=== PATIENT | female | born 1990 | race Caucasian/White ===

== ENCOUNTER 2016-03-16 14:24 | Emergency (ER) | payer MEDICAID ==
[2015-04-21 02:56] VITALS: BMI 80.7
[~2016-03-16 14:24] MED LIST: ACETAMINOPHEN500 M1 PO; AMOXICILLIN875 MG PO; AUGMENTIN 875-11 TAB PO; AYGESTIN5 MG PO; BAYER CHEWABLE81 MG PO; BENADRYL25 M1 PO; CELEXA40 MG PO; CHLORPROMAZINE200 MG PO; CIPRO500 MG PO; DEMEROL50 MG PO; FLEXERIL10 MG PO; FLUTICASONE PRO16 GM NASAL; HYDROCODONE-APA1 TAB PO; IBUPROFEN200 MG PO; IPRAT-ALBUT 0.5-3 ML NEB; IPRAT-ALBUT 0.5-3 ML UPD; LATUDA40 MG PO; LEVAQUIN500 MG PO; LEVAQUIN750 MG PO; LEVSIN/ANASP0.125 MG PO; LOPRESSOR25 MG PO; LOPRESSOR50 MG PO; LYRICA75 MG PO; MEDROL DOSE PACK4 MG PO; MORPHINE SULFAT30 M4 PO; MUCINEX600 MG PO; NEURONTIN 300300 MG; NEURONTIN 300300 MG PO; NICODERM C1 PATCH .2 TRANSDERM; NORCO 7.5-3251 EACH PO; PERFOROMIS20 MCG/21 UPD; PHENERGAN DM SYR5 ML PO; PLAQUENIL200 MG PO; PREDNISONE20 MG PO; PREDNISONE5 MG PO; PROTONIX40 MG PO; ROBAXIN500 MG PO; SINGULAIR10 MG PO; STOOL SOFTENER240 MG PO; SYNTHROID100 MCG PO; THORAZINE50 MG PO; ULTRAM50 MG PO; VENTOLIN HFA18 GM INH; ZANTAC150 MG PO; ZOFRAN4 MG PO
[2016-03-16 15:24] LABS: BASOPHILS 0 % (0.0-2.0); EOSINOPHILS 0.3 % (0-7); HEMATOCRIT 41.2 % (36.0-48.0); HEMOGLOBIN 13.1 g/dL (12-16); MCH 29.6 pg (26.0-34.0); MCHC 31.8 g/dL (31.0-37.0); MCV 93.2 fL (80.0-100.0); MEAN PLATELET VOLUME 11.8 fL (7.4-10.4); MONOCYTES 6.3 % (2-11); NEUTROPHILS 59.4 % (40-80); PLATELET COUNT 122 10x3/uL (130-400); RBC 4.42 10x6/uL (4.00-5.40); RDW 13.1 % (11.5-14.5); WBC 3.7 10x3/uL (4.8-10.8)
[2016-03-16 15:26] LABS: ALBUMIN 3.1 g/dL (3.4-5.0); ALKALINE PHOSPHATASE 96 U/L (46-116); ALT (SGPT) 103 U/L (10-68); CALC OSMOLALITY 284 mosm/kg (275-300); CALCIUM 8.7 mg/dL (8.5-10.1); CARBON DIOXIDE 32.1 mmol/L (21.0-32.0); CHLORIDE - SERUM 102 mmol/L (98-107); CREATININE - SERUM 0.9 mg/dL (0.6-1.3); PROTEIN - SERUM 6.9 g/dL (6.4-8.2); SODIUM 140 mmol/L (136-145); UREA NITROGEN 10 mg/dL (7-18); eGFR NON AFRICAN AMERICAN 81 mL/min (90-120)
[2016-03-16 15:27] LABS: GLUCOSE 219 mg/dL (74-106)
[2016-03-16 16:04] LABS: APPEARANCE CLEAR (CLEAR); BILIRUBIN NEGATIVE (NEGATIVE); COLOR YELLOW (YELLOW); GLUCOSE NEGATIVE (NEGATIVE); KETONE NEGATIVE (NEGATIVE); LEUKOCYTE ESTERASE TRACE (NEGATIVE); NITRITE POSITIVE (NEGATIVE); PROTEIN NEGATIVE (NEGATIVE); UROBILINOGEN NORMAL (NORMAL)
[2016-03-16 16:05] LABS: BACTERIA MANY /hpf (NONE SEEN); EPITHELIAL CELLS 0-5 /hpf (0-5); RED CELLS - URINE 0-5 /hpf (0-5)
== END 2016-03-16 17:15 | disposition home or self-care (01) ==
LOC: D.ER 14:24
PROVIDERS: Emergency Medicine
DX: R06.00 Dyspnea, unspecified (principal); N39.0 Urinary tract infection, site not specified; F31.9 Bipolar disorder, unspecified; J45.909 Unspecified asthma, uncomplicated; M94.0 Chondrocostal junction syndrome [Tietze]; M35.00 Sjogren syndrome, unspecified; F17.200 Nicotine dependence, unspecified, uncomplicated

== ENCOUNTER 2016-03-19 16:08 | Emergency (ER) | payer MEDICAID ==
[2015-04-21 02:56] VITALS: BMI 80.7
== END 2016-03-19 16:30 | disposition left against medical advice (07) ==
LOC: D.ER 16:08
DX: Z02.9 Encounter for administrative examinations, unspecified (principal)

== ENCOUNTER → 2016-03-20 13:33 | Outpatient (CLI) | payer MEDICAID ==
[2015-04-21 02:56] VITALS: BMI 80.7
== END | disposition home or self-care (01) ==
LOC: D.US 13:33
DX: L03.116 Cellulitis of left lower limb (principal)

== ENCOUNTER 2016-03-20 14:38 | Emergency (ER) | payer MEDICAID ==
[2015-04-21 02:56] VITALS: BMI 80.7
== END 2016-03-20 18:58 | disposition home or self-care (01) ==
LOC: D.ER 14:38
DX: L03.115 Cellulitis of right lower limb (principal); J45.909 Unspecified asthma, uncomplicated; F31.9 Bipolar disorder, unspecified; M35.00 Sjogren syndrome, unspecified

== ENCOUNTER 2016-03-26 08:27 | Emergency (ER) | payer MEDICAID ==
[2015-04-21 02:56] VITALS: BMI 80.7
== END 2016-03-26 11:55 | disposition home or self-care (01) ==
LOC: D.ER 08:27
DX: S69.91XA Unspecified injury of right wrist, hand and finger(s), initial encounter (principal); W01.0XXA Fall on same level from slipping, tripping and stumbling without subsequent striking against object, initial encounter; Y93.89 Activity, other specified; Y92.89 Other specified places as the place of occurrence of the external cause; F31.9 Bipolar disorder, unspecified; M94.0 Chondrocostal junction syndrome [Tietze]; M35.00 Sjogren syndrome, unspecified

== ENCOUNTER 2016-04-04 15:05 | Emergency (ER) | payer MEDICAID ==
[2015-04-21 02:56] VITALS: BMI 80.7
[2016-04-04 17:25] LABS: BASOPHILS 0 % (0.0-2.0); EOSINOPHILS 0 % (0-7); HEMATOCRIT 41.5 % (36.0-48.0); HEMOGLOBIN 13.5 g/dL (12-16); IMMATURE GRANULOCYTES 0.2 % (0-5); LYMPHOCYTES 29.1 % (15-50); MCH 29.8 pg (26.0-34.0); MCHC 32.5 g/dL (31.0-37.0); MCV 91.6 fL (80.0-100.0); MEAN PLATELET VOLUME 12.1 fL (7.4-10.4); MONOCYTES 7.6 % (2-11); NEUTROPHILS 63.1 % (40-80); PLATELET COUNT 128 10x3/uL (130-400); RBC 4.53 10x6/uL (4.00-5.40); RDW 13.5 % (11.5-14.5); WBC 4.6 10x3/uL (4.8-10.8)
[2016-04-04 18:06] LABS: ALBUMIN 2.7 g/dL (3.4-5.0); ALKALINE PHOSPHATASE 44 U/L (46-116); ALT (SGPT) 7 U/L (10-68); BILIRUBIN - TOTAL 0.48 mg/dL (0.2-1.3); CALC OSMOLALITY 278 mosm/kg (275-300); CALCIUM 7.5 mg/dL (8.5-10.1); CARBON DIOXIDE 34.3 mmol/L (21.0-32.0); CHLORIDE - SERUM 102 mmol/L (98-107); POTASSIUM - SERUM 4.2 mmol/L (3.5-5.1); PROTEIN - SERUM 2.3 g/dL (6.4-8.2); SODIUM 141 mmol/L (136-145); TROPONIN-I 0.047 ng/mL (0.000-0.060); UREA NITROGEN 9 mg/dL (7-18)
[2016-04-04 18:07] LABS: GLUCOSE 85 mg/dL (74-106)
[2016-04-04 18:25] LABS: CREATININE - SERUM < 0.6 mg/dL (0.6-1.3); eGFR NON AFRICAN AMERICAN > 90 mL/min (90-120)
== END 2016-04-04 22:34 | disposition home or self-care (01) ==
LOC: D.ER 15:05
PROVIDERS: Emergency Medicine
DX: J20.9 Acute bronchitis, unspecified (principal); F31.9 Bipolar disorder, unspecified; M94.0 Chondrocostal junction syndrome [Tietze]; M35.00 Sjogren syndrome, unspecified

== ENCOUNTER → 2016-04-17 11:20 | Outpatient (CLI) | payer MEDICAID ==
[2015-04-21 02:56] VITALS: BMI 80.7
== END | disposition home or self-care (01) ==
LOC: D.RT 11:20
DX: R06.02 Shortness of breath (principal); R06.2 Wheezing

== ENCOUNTER 2016-04-18 12:51 | Emergency (ER) | payer MEDICAID ==
[2015-04-21 02:56] VITALS: BMI 80.7
[2016-04-18 14:08] LABS: BASOPHILS 0 % (0.0-2.0); EOSINOPHILS 0 % (0-7); HEMATOCRIT 41.6 % (36.0-48.0); HEMOGLOBIN 13.4 g/dL (12-16); IMMATURE GRANULOCYTES 0.2 % (0-5); LYMPHOCYTES 24.7 % (15-50); MCH 29.5 pg (26.0-34.0); MCHC 32.2 g/dL (31.0-37.0); MCV 91.6 fL (80.0-100.0); MEAN PLATELET VOLUME 11.2 fL (7.4-10.4); MONOCYTES 9.2 % (2-11); NEUTROPHILS 65.9 % (40-80); PLATELET COUNT 118 10x3/uL (130-400); RBC 4.54 10x6/uL (4.00-5.40); RDW 13.1 % (11.5-14.5); WBC 4.3 10x3/uL (4.8-10.8)
[2016-04-18 14:30] LABS: ALBUMIN 3.4 g/dL (3.4-5.0); ANION GAP 8.5 mmol/L (8-16); BILIRUBIN - TOTAL 0.36 mg/dL (0.2-1.3); CALCIUM 9.1 mg/dL (8.5-10.1); CARBON DIOXIDE 33.4 mmol/L (21.0-32.0); POTASSIUM - SERUM 3.9 mmol/L (3.5-5.1); PROTEIN - SERUM 7.6 g/dL (6.4-8.2)
== END 2016-04-18 16:00 | disposition home or self-care (01) ==
LOC: D.ER 12:51
PROVIDERS: Emergency Medicine
DX: R06.00 Dyspnea, unspecified (principal); J20.9 Acute bronchitis, unspecified; F31.9 Bipolar disorder, unspecified; M94.0 Chondrocostal junction syndrome [Tietze]; M35.00 Sjogren syndrome, unspecified

== ENCOUNTER 2016-04-22 09:46 | Emergency (ER) | payer MEDICAID ==
[2015-04-21 02:56] VITALS: BMI 80.7
[2016-04-22 11:03] LABS: APPEARANCE HAZY (CLEAR); BILIRUBIN NEGATIVE (NEGATIVE); COLOR YELLOW (YELLOW); GLUCOSE NEGATIVE (NEGATIVE); KETONE NEGATIVE (NEGATIVE); LEUKOCYTE ESTERASE NEGATIVE (NEGATIVE); NITRITE NEGATIVE (NEGATIVE); PROTEIN TRACE mg/dL (NEGATIVE); SPECIFIC GRAVITY 1.015 (1.005-1.020); UROBILINOGEN NORMAL (NORMAL)
[2016-04-22 11:04] LABS: BACTERIA FEW /hpf (NONE SEEN); EPITHELIAL CELLS 0-5 /hpf (0-5); RED CELLS - URINE 0-5 /hpf (0-5); WHITE CELLS - URINE 0-5 /hpf (0-5)
[2016-04-22 11:07] LABS: BASOPHILS 0 % (0.0-2.0); EOSINOPHILS 0 % (0-7); HEMATOCRIT 42.7 % (36.0-48.0); HEMOGLOBIN 14.1 g/dL (12-16); IMMATURE GRANULOCYTES 0.2 % (0-5); LYMPHOCYTES 31.3 % (15-50); MCV 90.9 fL (80.0-100.0); MEAN PLATELET VOLUME 11.6 fL (7.4-10.4); MONOCYTES 6.6 % (2-11); NEUTROPHILS 61.9 % (40-80); PLATELET COUNT 117 10x3/uL (130-400); RDW 13.2 % (11.5-14.5); WBC 6.6 10x3/uL (4.8-10.8)
[2016-04-22 11:16] LABS: UDS - AMPHET NEGATIVE QUAL (NEGATIVE); UDS - BARB NEGATIVE QUAL (NEGATIVE); UDS - BENZO NEGATIVE QUAL (NEGATIVE); UDS - COCAINE NEGATIVE QUAL (NEGATIVE); UDS - METH NEGATIVE QUAL (NEGATIVE); UDS - OPIATE POSITIVE QUAL (NEGATIVE); UDS - PCP NEGATIVE QUAL (NEGATIVE); UDS - THC NEGATIVE QUAL (NEGATIVE)
[2016-04-22 11:23] LABS: ALBUMIN 3.5 g/dL (3.4-5.0); ALKALINE PHOSPHATASE 81 U/L (46-116); ALT (SGPT) 86 U/L (10-68); BILIRUBIN - TOTAL 0.39 mg/dL (0.2-1.3); CALC OSMOLALITY 282 mosm/kg (275-300); CALCIUM 9.2 mg/dL (8.5-10.1); CARBON DIOXIDE 34.9 mmol/L (21.0-32.0); CHLORIDE - SERUM 101 mmol/L (98-107); CREATININE - SERUM 0.9 mg/dL (0.6-1.3); GLUCOSE 111 mg/dL (74-106); POTASSIUM - SERUM 3.9 mmol/L (3.5-5.1); PROTEIN - SERUM 7.8 g/dL (6.4-8.2); SODIUM 142 mmol/L (136-145); UREA NITROGEN 11 mg/dL (7-18); eGFR NON AFRICAN AMERICAN 81 mL/min (90-120)
[2016-04-22 11:31] LABS: AMYLASE - SERUM 16 U/L (25-115); C-REACTIVE PROTEIN 0.5 mg/dL (0.0-0.9); CREATINE KINASE 19 UL (21-215); LIPASE 105 U/L (73-393); PRO BNP 70 pg/mL (0-125); THYROID STIMULATING HORMONE 5.08 uIU/mL (0.36-3.74)
[2016-04-22 11:41] LABS: TROPONIN-I < 0.017 ng/mL (0.000-0.060)
== END 2016-04-22 12:49 | disposition home or self-care (01) ==
LOC: D.ER 09:46
PROVIDERS: Family Medicine
DX: R06.00 Dyspnea, unspecified (principal); M94.0 Chondrocostal junction syndrome [Tietze]; M35.00 Sjogren syndrome, unspecified

== ENCOUNTER 2016-06-05 10:58 | Emergency (ER) | payer MEDICAID ==
[2015-04-21 02:56] VITALS: BMI 80.7
== END 2016-06-05 14:00 | disposition home or self-care (01) ==
LOC: D.ER 10:58
DX: M25.532 Pain in left wrist (principal); W01.0XXA Fall on same level from slipping, tripping and stumbling without subsequent striking against object, initial encounter; Y93.89 Activity, other specified; Y92.89 Other specified places as the place of occurrence of the external cause; F17.200 Nicotine dependence, unspecified, uncomplicated

== ENCOUNTER 2020-07-16 01:36 | Emergency (ER) | payer MEDICAID ==
[2020-07-16 02:08] VITALS: Ht 172.7 cm
[2020-07-16] MEDS ORDERED: OXYCONTIN10 MG PO (02:12)
[2020-07-16 04:37] VITALS: BP 124/81
[2020-07-16] MEDS ORDERED: ACETAMINOPHEN500 M1 PO (18:38)
[2020-07-16] MEDS ORDERED: CYCLOBENZAPRINE10 MG PO (18:38)
[2020-07-16] MEDS ORDERED: MEDROL DOSE PACK4 MG PO (18:38)
== END 2020-07-16 04:38 | disposition home or self-care (01) ==
LOC: D.ER 01:36
DX: M25.512 Pain in left shoulder (principal); G89.29 Other chronic pain; G62.9 Polyneuropathy, unspecified; J45.909 Unspecified asthma, uncomplicated

== ENCOUNTER 2020-07-16 16:59 | Emergency (ER) | payer MEDICAID ==
[~2020-07-16] VITALS: Ht 172.7 cm; Wt 210.9 kg
[~2020-07-16 16:59] MED LIST changes: +OXYCONTIN10 MG PO
[2020-07-16 17:21] VITALS: Ht 172.7 cm; Wt 210.9 kg
[2020-07-16] MEDS ORDERED: CYCLOBENZAPRINE10 MG PO (18:38)
[2020-07-16] MEDS ORDERED: MEDROL DOSE PACK4 MG PO (18:38)
[2020-07-16] MEDS ORDERED: ACETAMINOPHEN500 M1 PO (18:38)
[2020-07-16 19:12] VITALS: BP 116/59
== END 2020-07-16 19:13 | disposition home or self-care (01) ==
LOC: D.ER 16:59
DX: S49.92XA Unspecified injury of left shoulder and upper arm, initial encounter (principal); M25.512 Pain in left shoulder; M79.10 Myalgia, unspecified site; S46.912A Strain of unspecified muscle, fascia and tendon at shoulder and upper arm level, left arm, initial encounter; W19.XXXA Unspecified fall, initial encounter; Y93.9 Activity, unspecified; Y92.9 Unspecified place or not applicable